=== PATIENT | male | born 1950 | race Two or more races ===

== ENCOUNTER → 2024-12-21 | Emergency (ER) | payer OTHER ==
[~2024-12-21] VITALS: Ht 152.4 cm; Wt 72.6 kg
[~2024-12-21] MED LIST: CEFTRIAXONE SODIUM 1,000 MG VIAL IV ONE
[2024-12-21 14:13] LABS: HEMATOCRIT 48.6 % (39.0-48.0); HEMOGLOBIN 16.6 g/dL (13-16.00); MEAN CELL VOLUME 90.5 fL (80.0-100.00); MEAN CORPUSCULAR HEMOGLOBIN 30.9 pg (27.00-32.0); MEAN CORPUSCULAR HGB CONC 34.1 g/dl (32.0-36.0); PLATELET COUNT 153 K/uL (150-450); RED BLOOD COUNT 5.37 M/uL (4.00-6.00); RED CELL DISTRIBUTION WIDTH 14.6 % (11.5-14.5)
[2024-12-21 15:25] LABS: ALBUMIN 3.8 gm/dL (3.4-5.0); BILIRUBIN TOTAL 0.83 mg/dL (0.3-1.2); CALCIUM 8.8 mg/dL (8.5-10.1); CREATININE SERUM 1.07 mg/dL (0.70-1.30); GFR 67.93; GLOBULINA 3.2 G/DL (2.4-3.5); POTASSIUM 4.55 mEq/L (3.5-5.1)
== END | disposition home or self-care (01) ==
LOC: ER 12:57
PROVIDERS: General Practice
DX: M94.0 Chondrocostal junction syndrome [Tietze] (principal); I10 Essential (primary) hypertension; Z88.8 Allergy status to other drugs, medicaments and biological substances
CPT/HCPCS: 36415; 71046; 93005; 96365; 99283; J0696